=== PATIENT | female | born 1990 | race African-American/Black ===

== ENCOUNTER 2019-01-03 23:01 | Emergency (ER) | payer MEDICAID ==
[~2019-01-03] VITALS: Ht 167.6 cm; Wt 68.0 kg
[2019-01-04] MEDS ORDERED: SODIUM CHLORIDE 0.9% 1,000 ML IV ONE (04:30)
[2019-01-04] MEDS ORDERED: ONDANSETRON HCL 4MG/2ML INJ IV STA (04:30)
[2019-01-04] MEDS ORDERED: KETOROLAC 30MG/ML VIAL IV ONE (04:45)
[2019-01-04 04:49] LABS: HEMATOCRIT. 36.8 % (36.0-48.0); HEMOGLOBIN. 12.1 g/dL (12.0-16.0); MEAN CORPUSCULAR HEMOGLOBIN 27.8 pg (28.0-32.0); MEAN CORPUSCULAR VOLUME 84.7 fL (81.0-99.0); MEAN PLATELET VOLUME 8.9 fl (7.4-10.4); PLATELET 158 x1000/uL (130-400); RED BLOOD CELL COUNT 4.35 mill/uL (4.2-5.4); RED CELL DISTRIBUTION WIDTH 14.7 % (11.6-14.6)
[2019-01-04 04:54] LABS: CHLORIDE 101 mEq/L (98-107)
[2019-01-04 05:45] LABS: PLATELET ESTIMATE NORMAL
[2019-01-04] MEDS ORDERED: DEXAMETHASONE 10 MG/ML VIAL IV ONE (06:15)
[2019-01-04] MEDS ORDERED: SODIUM CHLORIDE 0.9% 1000ML BAG (SEPSIS BOLUS) IV ONE (06:15)
[2019-01-04] MEDS ORDERED: CEFTRIAXONE 1 G PREMIX 50 ML IV ONE (06:15)
[2019-01-04] MEDS ORDERED: KCL 10MEQ/50ML PREMIX 50 ML IV ONE (06:45)
[2019-01-04] MEDS ORDERED: MORPHINE SULFATE 4 MG/ML CPJ (NOT FOR IM USE) IV ONE (06:45)
[2019-01-04] MEDS ORDERED: ONDANSETRON HCL 4MG/2ML INJ IV ONE (06:45)
[2019-01-04] MEDS ORDERED: CLINDAMYCIN 600 MG in DEXTROSE 5% WATER 50 ML IV ONE (09:30)
[2019-01-04 09:53] VITALS: BP 106/69
[2019-01-04] MEDS ORDERED: CLINDAMYCIN 600MG PREMIX 50 ML IV SCH (10:15)
== END 2019-01-04 10:42 | disposition short-term general hospital (02) ==
LOC: ER 23:01 → CANRESERV 01-04 07:04 → ENRESERV 01-04 07:04 → CANBEDREQ 01-04 09:51 → ER 01-04 10:42
DX: A41.9 Sepsis, unspecified organism (principal); J36 Peritonsillar abscess
CPT/HCPCS: 36415; 70491; 71045; 80053; 83605; 83690; 85025; 87040; 87070; 87076; 87430; 87804; 96361; 96365; 96366; 96368; 96375; 96376; 99291; J0696; J1100; J1885; J2270; J2405; J3480; J3490; J7030; Z7610; J7060